=== PATIENT | female | born 1970 | race Asian ===

== ENCOUNTER → 2018-05-21 | Day surgery (SDC) | payer BC ==
--- NOTE | 2018-05-20 19:46 | MH ---
cc: Betsy Torres MD DATE OF ADMISSION: 05/21/2018 DATE OF SURGERY: 05/21/2018. HISTORY OF PRESENT ILLNESS: The patient is a 48-year-old [place] female, G1, P1, who has been coming to my office for a long time. This past year, she has had several visits due to postcoital spotting and some irregular bleeding. This has not been resolved with the control pill. Ultrasound done revealed a possible 2 cm submucosal fibroid near the lower uterine segment/cervical junction. MRI was recommended by radiology, which we performed and that confirmed ultrasound findings of a 2 cm possible submucosal fibroid at the lower uterine segment/cervical junction. The patient does have a history of fibroids in the past and she has actually had an abdominal myomectomy prior to her only . Due to these findings, I recommend that we have direct visualization with the MyoSure and plan to remove it during that surgery and the patient agrees. PAST MEDICAL HISTORY: Gastroesophageal reflux disease. PAST SURGICAL HISTORY: An abdominal myomectomy and section. MEDICATIONS: Currently include pantoprazole. ALLERGIES TO MEDICATIONS: NONE. SOCIAL HISTORY: No tobacco, alcohol or drug use. 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 FAMILY HISTORY: Noncontributory. GYNECOLOGIC HISTORY: No abnormal Paps. No STDs. OBSTETRIC HISTORY: x 1 secondary to prior myomectomy. REVIEW OF SYSTEMS: Negative. PHYSICAL EXAMINATION: VITAL SIGNS: Blood pressure is 120/70, pulse of 70. BREASTS: Without masses, nodes or discharge. CHEST: Clear to auscultation bilaterally. CARDIAC: Regular rate and rhythm, without murmur, rub or gallop. ABDOMEN, BACK: Soft, nontender, nondistended. There is no hepatosplenomegaly. There is no CVA tenderness. There are no hernias noted. PELVIC: Vulva, vagina and normal external female genitalia without lesions. Vaginal vault without lesions. Cervix without lesions. Uterus palpates normal size. It is nontender. No adnexal masses. LABORATORY DATA: On the patient include a Pap smear 2018, which was negative and the ultrasound and MRI, which I discussed in the HPI. ASSESSMENT AND PLAN: Include postcoital bleeding and irregular breakthrough bleeding, with suspected submucosal fibroid. Plan will be for MyoSure, myomectomy, dilatation and curettage. MD NIEVES Friend/DORY , 07:06 PM , 07:45 PM
[~2018-05-21] VITALS: Ht 160 cm; Wt 52.8 kg
[~2018-05-21] MED LIST: ACETAMINOPHEN 1000 MG/100 ML 100 ML IV ONE; CHLORHEXIDINE GLUCONATE 2 % 1 PACK (2 CLOTHS) TOPICAL PRN; FAMOTIDINE 20 MG/2 ML VIAL ONE; KETOROLAC TROMETHAMINE 30 MG/ML (IVP) VIAL IV PUSH ONE; LACTATED RINGER'S 1000 ML IV PRN; METOPROLOL TARTRATE 25 MG TAB PO PRN; MIDAZOLAM HCL 2 MG/2 ML VIAL ONE; ONDANSETRON HCL 4 MG/2 ML VIAL IV PUSH PRN; POVIDONE IODINE 5% (ANTISEPSIS KIT) 4 APPLICATIONS EACH NARE PRN; PROT40TA PO; SODIUM CHLORID 0.9% 500 ML IV PRN; oxyCODONE/ACETAMINOPHEN 5 MG/325 MG TAB PO PRN
[2018-05-21 10:14] VITALS: BP 142/75; PULSE 80; RESP 18; TEMP 98.4; O2SAT 99
--- NOTE | 2018-05-21 11:08 | MP ---
cc: Betsy Torres MD DATE OF OPERATION: 05/21/2018 DATE OF SURGERY: 05/21/2018. PREOPERATIVE DIAGNOSIS: Postcoital bleeding and breakthrough bleeding. POSTOPERATIVE DIAGNOSIS: Postcoital bleeding and breakthrough bleeding. PROCEDURE PERFORMED: MyoSure myomectomy. SURGEON: Betsy Torres MD ANESTHESIA: General by Facemask. FINDINGS IN SURGERY: Included a lower uterine segment endocervical canal submucosal fibroid about 2 cm, otherwise normal-appearing uterine cavity. BLOOD LOSS: Minimal. COMPLICATIONS: None. DESCRIPTION OF OPERATION: After proper consents were obtained, the patient was taken to the operating room where general by Facemask anesthesia was applied. She was then placed in the dorsal lithotomy position, sterilely prepped and draped. She had already emptied her bladder prior to coming to the operating room. At this time, a weighted speculum was placed in the vaginal vault. The anterior lip of the cervix was grasped with a single-tooth tenaculum. The uterus was sounded to about 8 cm. We then dilated the cervix with Hegar dilators up to about #20. We then placed the extra large MyoSure scope into the uterine cavity using normal saline as the distending medium. Inspection revealed a normal-appearing uterine cavity, but about a 2 cm fibroid like mass in the lower segment into the endocervical canal. We went ahead and performed a MyoSure curetting of the mass, removing it in its entirety. Instruments were removed. Counts were correct. The patient was stable to the recovery room. Betsy Torres MD CCD/TL , 10:55 AM , 11:07 AM
== END | disposition home or self-care (01) ==
LOC: HSDC 06:03
PROVIDERS: ATTEND Obstetrics & Gynecology
DX: D25.0 Submucous leiomyoma of uterus (principal); N94.12 Deep dyspareunia; N93.0 Postcoital and contact bleeding
CPT/HCPCS: 00952; 58561; 84703; 88305; J0131; J2250; J3010; J7120